=== PATIENT | female | born 1990 | race Caucasian/White ===

== ENCOUNTER 2017-04-28 04:08 | Emergency (ER) | payer MEDICAID ==
[~2017-04-28] VITALS: Ht 160 cm; Wt 91.9 kg
[~2017-04-28 04:08] MED LIST: ALBUTEROL INH; CEPH-376 PO; FLUT10.6 INH; HYDR10TA4 PO; MONT10TA6 PO; PRAZ2CAP PO; PRAZ2CAP2 PO; SERT100T PO
[2017-04-28 05:06] LABS: DAU SCREEN DISCLAIMER
[2017-04-28 05:11] LABS: HCG UR OBC PASS
[2017-04-28 05:44] LABS: BLOOD UREA NITROGEN 14 mg/dL (7-18)
[2017-04-28 05:50] LABS: ACETAMINOPHEN < 2 mcg/mL (10-30)
[2017-04-28 08:08] VITALS: BP 108/64
[2017-04-28] MEDS ORDERED: CLON1TAB PO (09:02)
[2017-04-28] MEDS ORDERED: TRAZ50TA18 PO (09:02)
[2017-04-28] MEDS ORDERED: LITH150C PO (09:02)
== END 2017-04-28 13:13 ==
LOC: ED 08:17
DX: Z00.01 Encounter for general adult medical examination with abnormal findings (principal); R45.851 Suicidal ideations; F10.129 Alcohol abuse with intoxication, unspecified; J45.909 Unspecified asthma, uncomplicated; F31.9 Bipolar disorder, unspecified
CPT/HCPCS: 36415; 80048; 80178; 80307; 80329; 81003; 81025; 82040; 84703; 85025; 99285; G0480